=== PATIENT | male | born 1940 | race Caucasian/White ===

== ENCOUNTER 2022-03-15 14:33 | Outpatient (REF) | payer OTHER, SELFPAY ==
[2022-03-15 16:16] LABS: Vitamin B12 1549 pg/mL (200-900)
== END 2022-03-15 14:34 | disposition home or self-care (01) ==
LOC: HO.LAB 14:33
PROVIDERS: Visit Provider Psychiatry & Neurology Neurology
DX: G30.9 Alzheimer's disease, unspecified (principal)
CPT/HCPCS: 36415; 82607

== ENCOUNTER 2022-11-02 14:30 | Outpatient (AMB) | payer OTHER, SELFPAY ==
--- NOTE | 2022-11-02 14:32 | A.OFFVIS_ITS ---
Intake Vital Signs 11/02/22 14:37 Height 5 ft 10 in Weight 205 lb 4 oz BMI 29.4 BP 124/78 Blood Pressure Location Rt brachial Position Sitting Pulse 51 Pulse Source Pulse Oximeter Pulse Oximetry (%) 93 Oxygen Delivery Method Room Air Intake Visit Reasons: ENP Alzheimer's Dementia - Confirmed Intake Note: Patient presents for evaluation for alzheimer's Allergies No Known Allergies Allergy (Verified 11/02/22 14:38) Medication List - Last Reconciled 11/02/22 by Alley Fernando MD amlodipine 5 mg PO DAILY atorvastatin 20 mg PO DAILY meclizine 25 mg PO TID PRN omeprazole 20 mg PO DAILY scopolamine base 1 patch topical Q3D sertraline 25 mg PO DAILY sildenafil 100 mg PO DIRECTED HPI HPI Comments History of Present Illness Details 82y/o male comes for further management of dementia. About 2 years ago he noticed short term memory issues and difficulty with word finding and expressing.His thinks it started after a gall bladder surgery .He is unable to describe his short term memory issues. ACcording to his , he has had difficulty with directions while driving. He can be disoriented to places. He has trouble with peoples names.He denies executive functions His manages the finances.He has nocturia, no snoring, abnormal leg movements in sleep, makes noises sometimes. [facility] Medical History (Updated 11/02/22 @ 15:23 by Alley Fernando MD) Actinic keratoses Cerebrovascular disease Cervicalgia Cognitive disorder Diastolic dysfunction Discoid lupus Esophageal dysmotility Hyperlipidemia Lactose intolerance Liver hemangioma Migraine Parasomnia Progressive non-fluent aphasia Pulmonary embolism Pulmonary HTN Snoring Surgical History H/O thumb surgery H/O: vasectomy Hx of cholecystectomy Hx of eye surgery Family History Mother Cancer Macular degeneration Brother No problems noted. Sister Stroke Social History Alcohol intake: current Patient Tobacco Use Status: Never used Tobacco Review of Systems Const Reports lethargy ENT Reports dysphagia and Reports hearing loss GI Reports dysphagia Neuro Reports Abnormal speech present and Reports memory loss Psych Reports anxiety, Reports depression and Reports memory loss Physical Exam Vital Signs: Last Vital Signs Pulse 51 07/26/23 14:37 BP 124/78 11/02/22 14:37 Pulse Ox 93 11/02/22 14:37 Oxygen Delivery Method Room Air 11/02/22 14:37 BMI result Body Mass Index 29.4 Const General: cooperative, healthy appearing, comfortable and no acute distress Nutritional Appearance: average body habitus Orientation/consciousness: patient oriented x3 Eyes Pupils: Equal, round and reactive pupils present Neuro Other: speech- non fluent General: patient oriented x3, tone normal, moves all extremities and no focal motor deficits Cranial nerves: Yes Facial sensation intact/muscles of mastication intact, Yes Equal, round and reactive pupils present, Yes Bilaterally intact EOM present, Yes Nystagmus not present, Yes Normal facial strength present and Yes Midline tongue present Speech: Abnormal speech present Orientation What is the (year) (season) (date) (day) (month)?: year, season, date and month Where are we (state) (county) (town or city) (hospital) (floor)?: state, county, town or city, hospital/clinic and floor Registration Name of 3 unrelated objects clearly and slowly, then ask patient to repeat all 3 of them. (1st repeat determines score. Make sure they can repeat all three): object 1, object 2 and object 3 Attention & Calculation (CHOOSE ONE) Spell WORLD backwards (DLROW): 5 letters Recall Ask patient to repeat the 3 items from question #3.: object 1 Language Show patient a wristwatch & ask what it is. Repeat for pencil.: watch and pencil Ask the patient to repeat the phrase 'No ifs, ands, or buts' after you.: correct Ask the patient to 'take a piece of paper with their right hand' 'fold paper in half' 'place paper on floor': take paper in right hand, fold paper in half and place paper on floor Print the sentence 'CLOSE YOUR EYES' on a piece. If patient actually closes eyes then score.: followed written direction Give patient a blank piece of paper & ask to write a sentence. Score if it contains a noun & verb.: sentence contains subject and verb Ask patient to copy figure of intersecting pentagons exactly. Score if all 10 angles & 2 intersects are included.: all 10 angles present & 2 are intersected Score Score: 27 Assessment & Plan Assessment & Plan (1) Progressive non-fluent aphasia: Comment: neurodegenerative vs vascular Code(s): G31.01 - Pick's disease; F02.80 - Dementia in other diseases classified elsewhere, unspecified severity, without behavioral disturbance, psychotic disturbance, mood disturbance, and anxiety (2) Cognitive disorder: Code(s): F09 - Unspecified mental disorder due to known physiological condition (3) Snoring: Code(s): R06.83 - Snoring (4) Parasomnia: Comment: REM behavior disorder Code(s): G47.50 - Parasomnia, unspecified Plan MRI report from PCP for review I will schedule him for sleep study tor /o sleep apnea, evaluate his parasomnia Neuropsych evaluation Speech and cognitive therapy. 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
[2022-11-02 14:37] VITALS: BP 124/78; PULSE 51; O2SAT 93; BMI 29.4
== END 2022-11-02 15:23 | disposition home or self-care (01) ==
PROVIDERS: PCP Internal Medicine; Visit Provider Psychiatry & Neurology Neurology
DX: G31.01 Pick's disease (principal); F02.80 Dementia in other diseases classified elsewhere, unspecified severity, without behavioral disturbance, psychotic disturbance, mood disturbance, and anxiety; R41.89 Other symptoms and signs involving cognitive functions and awareness; R06.83 Snoring; G47.50 Parasomnia, unspecified
CPT/HCPCS: 99204

== ENCOUNTER → 2022-11-02 14:30 | Outpatient (BNVA) | payer OTHER, SELFPAY | PROVIDERS: PCP Internal Medicine; Visit Provider Psychiatry & Neurology Neurology | DX: G31.01 Pick's disease (principal); F02.80 Dementia in other diseases classified elsewhere, unspecified severity, without behavioral disturbance, psychotic disturbance, mood disturbance, and anxiety; F09 Unspecified mental disorder due to known physiological condition; R06.83 Snoring; G47.50 Parasomnia, unspecified | CPT/HCPCS: 99202 ==

== ENCOUNTER → 2022-11-28 19:30 | Outpatient (REF) | payer OTHER, SELFPAY | LOC: HO.SL 19:30 | PROVIDERS: PCP Internal Medicine; Visit Provider Psychiatry & Neurology Neurology | DX: G47.33 Obstructive sleep apnea (adult) (pediatric) (principal); G47.50 Parasomnia, unspecified; R06.83 Snoring | CPT/HCPCS: 95810 ==

== ENCOUNTER → 2022-11-28 21:46 | Outpatient (BNV) | payer OTHER, SELFPAY | PROVIDERS: PCP Internal Medicine; Visit Provider Psychiatry & Neurology Neurology | DX: G47.33 Obstructive sleep apnea (adult) (pediatric) (principal) | CPT/HCPCS: 95810 ==

== ENCOUNTER 2022-12-02 10:19 | Outpatient (REF) | payer OTHER, SELFPAY ==
--- NOTE | ~2022-12-02 | FL_ITS ---
PROCEDURE: XR BARIUM SWALLOW CLINICAL INFORMATION: Dysphagia. COMPARISON: None available. TECHNIQUE: Modified barium swallow was performed lateral position under fluoroscopy in presence of speech therapist. FINDINGS: On oral administration of thin, thick nectar and puree consistency, food coated with barium there is normal propagation of bolus from the oral cavity through the pharynx into esophagus without obstruction. No laryngeal penetration or aspiration seen. No retention of barium in the valleculae or piriform sinuses. FLUOROSCOPY TIME: 1.4 minutes DOSE AREA PRODUCT: 2.147 uGy-m2 (microgray-meter squared) FL/FL barium swallow modified IMPRESSION: Unremarkable modified barium swallow in presence of speech therapist. Correlate with speech therapy report.
--- NOTE | 2022-12-02 11:59 | MHC.SL.IMP ---
Date of Plan of Treatment: 12/02/22 Onset of Symptoms/Illness: 11/03/22 Date Treatment Started: 12/02/22 Admitting Diagnosis: Dysphagia, unspecified Pick's disease Dementia w/o behavioral disturbance Primary Speech & Language Diagnosis: R13.10 Dysphagia Secondary Speech & Language Diagnosis: Pre-evaluation Dietary Consistencies: Pre-evaluation Liquid Consistency: Thin Pre-evaluation Medication Administration: Oral Motor Exam Facial Symmetry: Normal for Patient Symmetrical Mouth Occlusion: Normal Oral-Facial Teeth Characteristics: Intact/Normal Dentures Oral Expression Ability: Mild Impairment Is patient able to manage secretions?: Yes Is patient able to produce volitional cough?: Yes Food and Liquid Trials: Oral Impairment: Lip Closure: 0=No labial escape Oral Impairment: Tongue Control During Bolus Hold: 0=Cohesive bolus between tongue to palatal seal Oral Impairment: Bolus Preparation/Mastication: 1=Slow prolonged chewing/mashing with complete re-collection Oral Impairment: Bolus Transport/Lingual Motion: 1= Delayed initiation of tongue motion Oral Impairment: Oral Residue: 2=Residue collection on oral structures Oral Impairment:Initiation of Pharyngeal Swallow: 2=Bolus head at posterior laryngeal surface of epiglottis Pharyngeal Impairment: Soft Palate Elevation: 0=No bolus between soft palate (SP)/pharyngeal wall (PW) Pharyngeal Impairment: Laryngeal Elevation: 0=Complete superior movement of thyroid cartilage (see description) Pharyngeal Impairment: Anterior Hyoid Excursion: 0=Complete anterior movement Pharyngeal Impairment: Epiglottic Movement: 1=Partial inversion Pharyngeal Impairment: Laryngeal Vestibular Closure:: 1=Incomplete: narrow column air/contrast in laryngeal vestibule Pharyngeal Impairment: Pharyngeal Stripping Wave: 0=Present: complete Pharyngeal Impairment: Pharyngeal Contraction: Did not test Pharyngeal Impairment: Pharyngoesophageal Segment Openin=Partial distention/partial duration: partial obstruction of flow Pharyngeal Impairment: Tongue Base (TB) Retraction: 1=Trace column of contrast/air between TB and posterior PW Pharyngeal Impairment: Pharyngeal Residue: 1=Trace residue within or on pharyngeal structures Pharyngeal Impairment: Esophageal Clearance Upright Position: Did not test Impressions and Recommendations [id number] Results: Lip closure for intraoral bolus containment resulted in no labial escape. Tongue control during bolus hold maintained a cohesive bolus held between tongue to palate seal. Bolus preparation and mastication resulted in slow, prolonged chewing/mashing but with complete re-collection. Bolus transport/lingual motion demonstrated delayed initiation of tongue motion. Oral residue was a collection on oral structures. Initiation of the pharyngeal swallow occurred as the bolus head was at the posterior laryngeal surface of the epiglottis. Soft palate elevation resulted in no bolus between the soft palate and the pharyngeal wall. Laryngeal elevation demonstrated complete superior movement of the thyroid cartilage with complete approximation of the arytenoids to the epiglottic petiole. Anterior hyoid excursion demonstrated complete anterior movement. Epiglottic movement resulted in partial inversion. Laryngeal vestibular closure was incomplete, with a narrow column of air/contrast noted within the laryngeal vestibule at the height of the swallow. Pharyngeal stripping wave was present and complete. Pharyngeal contraction could not be determined due to logistical reasons not related to physiologic impairment. Pharyngoesophageal segment opening demonstrated partial distension/partial duration, with partial obstruction of bolus flow. Tongue base retraction allowed a trace column of contrast or air between the retracted tongue base and the posterior pharyngeal wall. Pharyngeal residue was a trace within or on pharyngeal structures. Esophageal clearance in the upright position could not be assessed due to logistical reasons not related to physiologic impairment. Summary: Mr. Varner demonstrates adequate airway protection. Mild age-related changes are noted including oral and pharyngeal clearance, however he is able to compensate for these with supplemental swallow attempts. Mild retention of contrast is noted at the upper esophageal sphincter. The attending Radiologist performed a scan of the distal esophagus revealing adequate clearance into the stomach with no evidence of stricture. A full esophagram would be needed to correlate these findings, as deemed appropriate. Liquid Intake Recommendation: Thin Liquid Intake Strategies: Unrestricted Dietary Recommendations: Regular Medication Administration: Whole with Liquid Please contact the pharmacy regarding appropriate crushable or liquid drug formulations that are available whenever modified delivery is recommended. Compensatory Strategies Recommended: Sitting Upright (90 deg) Double Swallow Small Bites and Sips Alternate Liquids/Solids Supervision during eating and or drinking: Intermittent Supervision Recommended Treatments: Compens. Strategy Educat. Recommendation for Speech Therapy: NA:Typical Evaluation Text Comment: Frequency/Duration: Date Range for Service Requested: Timeline to reassess: PRN Scrap Separator Clinician/Clinical Fellow: No Supervisory Statement: N/A Speech Language Pathologist: Kumar Calvillo M.A., CCC-[facility]
== END 2022-12-02 10:20 | disposition home or self-care (01) ==
LOC: HO.XRAY 10:19
PROVIDERS: PCP Internal Medicine; Visit Provider Psychiatry & Neurology Neurology
DX: R13.10 Dysphagia, unspecified (principal); G31.01 Pick's disease; F02.80 Dementia in other diseases classified elsewhere, unspecified severity, without behavioral disturbance, psychotic disturbance, mood disturbance, and anxiety
CPT/HCPCS: 74230

== ENCOUNTER → 2022-12-02 10:19 | Outpatient (BNV) | payer OTHER, SELFPAY | PROVIDERS: PCP Internal Medicine; Visit Provider Radiology Diagnostic Radiology | DX: R13.10 Dysphagia, unspecified (principal) | CPT/HCPCS: 74230 ==

== ENCOUNTER 2023-02-24 09:18 | Outpatient (AMB) | payer OTHER, SELFPAY ==
--- NOTE | 2023-02-24 09:28 | MHC.OFFVIS ---
Intake Vital Signs 02/24/23 09:31 Height 5 ft 10 in Weight 204 lb 5 oz BMI 29.3 BP 132/76 Blood Pressure Location Rt brachial Position Sitting Respiration 16 Pulse 68 Pulse Source Pulse Oximeter Pulse Oximetry (%) 98 Oxygen Delivery Method Room Air Intake Visit Reasons: 2m f/u Alzheimer's Dementia- LVM Intake Note: Pt presents tot he office for follow up for Alzheimer's disease. He has brought MRI and CT discs for review today. He states he's been the same since his last visit. He's been using his CPAP but doesn't feel it works for him because he moves around too much. Branch Lending Manager Required: No Allergies No Known Allergies Allergy (Verified 02/24/23 09:39) Medication List - Last Reconciled 02/24/23 by Alley Fernando MD amlodipine 5 mg PO DAILY atorvastatin 20 mg PO DAILY meclizine 25 mg PO TID PRN omeprazole 20 mg PO DAILY scopolamine base 1 patch topical Q3D sertraline 25 mg PO DAILY sildenafil 100 mg PO DIRECTED HPI HPI Comments History of Present Illness Details 82y/o male comes for further management of dementia and CANDACE . His sleep study was c/w severe sleep apnea AHI 22/hr and the oxygen abilio 89%.He started CPAP but has difficulty He did not do speech therapy or memory testing.. About 2 years ago he noticed short term memory issues and difficulty with word finding and expressing.His thinks it started after a gall bladder surgery .He is unable to describe his short term memory issues. ACcording to his , he has had difficulty with directions while driving. He can be disoriented to places. He has trouble with peoples names.He denies executive functions His manages the finances.He has nocturia, no snoring, abnormal leg movements in sleep, makes noises sometimes. [facility] Medical History (Updated 02/24/23 @ 10:06 by Alley Fernando MD) CANDACE on CPAP Cognitive disorder Progressive non-fluent aphasia Snoring Parasomnia Cervicalgia Migraine Liver hemangioma Lactose intolerance Cerebrovascular disease Actinic keratoses Discoid lupus Diastolic dysfunction Esophageal dysmotility Hyperlipidemia Pulmonary embolism Pulmonary HTN Surgical History H/O: vasectomy H/O thumb surgery Hx of eye surgery Hx of cholecystectomy Family History Mother Cancer Macular degeneration Brother No problems noted. Sister Stroke Social History Alcohol intake: current Patient Tobacco Use Status: Never used Tobacco Review of Systems Neuro Reports Abnormal speech present Physical Exam Vital Signs: Last Vital Signs Pulse 68 02/24/23 09:31 Resp 16 02/24/23 09:31 BP 132/76 02/24/23 09:31 Pulse Ox 98 02/24/23 09:31 Oxygen Delivery Method Room Air 02/24/23 09:31 BMI result Body Mass Index 29.3 Const General: cooperative, healthy appearing, comfortable and no acute distress Nutritional Appearance: average body habitus Orientation/consciousness: patient oriented x3 Eyes Pupils: Equal, round and reactive pupils present Neuro Other: speech- non fluent General: patient oriented x3, tone normal, moves all extremities and no focal motor deficits Cranial nerves: Yes Facial sensation intact/muscles of mastication intact, Yes Equal, round and reactive pupils present, Yes Bilaterally intact EOM present, Yes Nystagmus not present, Yes Normal facial strength present and Yes Midline tongue present Speech: Abnormal speech present Orientation What is the (year) (season) (date) (day) (month)?: year, season, date, day and month Where are we (state) (county) (town or city) (hospital) (floor)?: state, town or city, hospital/clinic and floor Registration Name of 3 unrelated objects clearly and slowly, then ask patient to repeat all 3 of them. (1st repeat determines score. Make sure they can repeat all three): object 1, object 2 and object 3 Attention & Calculation (CHOOSE ONE) Spell WORLD backwards (DLROW): 5 letters Recall Ask patient to repeat the 3 items from question #3.: object 1 Language Show patient a wristwatch & ask what it is. Repeat for pencil.: watch and pencil Ask the patient to repeat the phrase 'No ifs, ands, or buts' after you.: correct Ask the patient to 'take a piece of paper with their right hand' 'fold paper in half' 'place paper on floor': take paper in right hand and fold paper in half Print the sentence 'CLOSE YOUR EYES' on a piece. If patient actually closes eyes then score.: followed written direction Give patient a blank piece of paper & ask to write a sentence. Score if it contains a noun & verb.: sentence contains subject and verb Ask patient to copy figure of intersecting pentagons exactly. Score if all 10 angles & 2 intersects are included.: all 10 angles present & 2 are intersected Score Score: 26 Assessment & Plan Assessment & Plan (1) Progressive non-fluent aphasia: Comment: neurodegenerative vs vascular Code(s): G31.01 - Pick's disease; F02.80 - Dementia in other diseases classified elsewhere, unspecified severity, without behavioral disturbance, psychotic disturbance, mood disturbance, and anxiety (2) Parasomnia: Comment: REM behavior disorder Code(s): G47.50 - Parasomnia, unspecified (3) CANDACE on CPAP: Code(s): G47.33 - Obstructive sleep apnea (adult) (pediatric) Plan MRI report from PCP for review Continue CPAP. Compleance stressed. Will trial him on memantine XR 7 mg qd Speech and cognitive therapy. Orders: Referrals Speech and Hearing Referral F02.80 - Dementia in other diseases classified elsewhere, unspecified severity, without behavioral disturbance, psychotic disturbance, mood disturbance, and anxiety, G31.01 - Pick's disease Medications: New memantine 7 mg PO DAILY 30 ea 0RF Coding Level of Care Code Est Pt Level 4 (50849) Diagnoses Progressive non-fluent aphasia G31.01; F02.80 Parasomnia G47.50 CANDACE on CPAP G47.33
[2023-02-24 09:31] VITALS: BP 132/76; PULSE 68; RESP 16; O2SAT 98; BMI 29.3
== END 2023-02-24 10:09 | disposition home or self-care (01) ==
PROVIDERS: PCP Internal Medicine; Visit Provider Psychiatry & Neurology Neurology
DX: G31.01 Pick's disease (principal); F02.80 Dementia in other diseases classified elsewhere, unspecified severity, without behavioral disturbance, psychotic disturbance, mood disturbance, and anxiety; G47.50 Parasomnia, unspecified; G47.33 Obstructive sleep apnea (adult) (pediatric)
CPT/HCPCS: 99214

== ENCOUNTER → 2023-02-24 09:18 | Outpatient (BNVA) | payer OTHER, SELFPAY | PROVIDERS: PCP Internal Medicine; Visit Provider Psychiatry & Neurology Neurology | DX: G47.50 Parasomnia, unspecified (principal); R06.83 Snoring; G31.01 Pick's disease; F02.80 Dementia in other diseases classified elsewhere, unspecified severity, without behavioral disturbance, psychotic disturbance, mood disturbance, and anxiety; F09 Unspecified mental disorder due to known physiological condition ==

== ENCOUNTER 2023-04-19 12:56 | Outpatient (RCR) | payer OTHER, SELFPAY ==
--- NOTE | 2023-04-25 15:10 | MHC.SP.ADU ---
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 Mr. Travis Varner is an 82 year old man referred for a speech-language evaluation by Alley Fernando MD of [facility] [place] in [place], [place]. Mrs. Kirstie Varner, Travis?s spouse, accompanied him to the evaluation and reports that she noticed her having a harder time ?remembering things.? Mr. Varner reports that he was under anesthesia for a 6-hour surgery in September 2020 and upon recovering from this procedure, noticed changes to his cognition. He reported difficulties in the following areas: expressing thoughts, understanding what others are saying, memory, attention, reading, writing, stuttering, following directions, and finding words. and Mrs. Varner recall ?being told Mr. Varner may have dementia,? but did not elaborate with further details. He did mention familial history of cognitive impairment or dementia in his father. 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 Mr. Varner has hearing aids, but did not wear them for this evaluation. Mr. Varner completed some high school and GED. He has two adult children in their 50s and lives in a private residence with his . He enjoys playing golf and noticed he has begun to have trouble finding the golf ball. Mr. Varner hopes to work on his memory skills and improve his speech. Medical History: Medical History (Updated 11/02/22 @ 15:23 by Alley Fernando MD) Actinic keratoses Cerebrovascular disease Cervicalgia Cognitive disorder Diastolic dysfunction Discoid lupus Esophageal dysmotility Hyperlipidemia Lactose intolerance Liver hemangioma Migraine Parasomnia Progressive non-fluent aphasia Pulmonary embolism Pulmonary HTN Snoring Surgical History H/O thumb surgery H/O: vasectomy Hx of cholecystectomy Hx of eye surgery Tests of Speech & Lang Adults: BNT Clinical Impression: Impaired Observations: Mr. Varner was administered the Standard Form of the [place] Naming Test (BNT). He was presented with line drawings, which he was instructed to name in a confrontation naming task. Mr. Varner correctly named 37 out of 60 images. He did produce frequent paraphasias, naming items with words that are similar in meaning or in the way they sound. For example, he labeled the pelican as ?duck? (semantic paraphasia) and hammock as ?harmonica? (phonemic paraphasia). Patient was able to name common nouns, such as ?comb,? but exhibited more difficulty naming less salient items, such as ?compass? or ?scroll.? He was observed to name many items using descriptive phrases (i.e. ?Ice pinchers? for ?tongs?). Mr. Varner benefitted from word retrieval cues and was able to name an additional 16 items in response to semantic (i.e. ?Think of 3? for target word ?tripod?) and phonemic (i.e. ?Cac?.? for target word ?cactus?) cues. Based on our observations, Mr. Varner presents with moderate anomia. He is observed to utilize compensatory strategies and self-cues to eventually retrieve words on his own and/or to continue the communication exchange. Tests of Cognition: RBANS Clinical Impression: Impaired Observations: Additionally, Mr. Varner?s cognitive linguistic skills were evaluated using the RBANS: The Repeatable Battery for the Assessment of Neuropsychological Status (RBANS-Updated Form A). The RBANS assesses aspects of cognitive memory, language, and attention skills. The RBANS is considered a screening battery for cognitive function used with adolescents and adults, ages 12 to 89 years. Composite domains assessed in this evaluation are: Immediate Memory, Visuospatial/Constructional, Language, Attention, and Delayed Memory. Assessed domains and their scores are summarized below: IMMEDIATE MEMORY: These subtests assess an individual?s ability to remember a small amount of information immediately after it is presented. Mr. Varner was presented with a list of 10 spoken words and was instructed to repeat back as many words as he could remember from the list (List Learning). He initially recalled 2 items from the list of 10. He was able to recall additional items from the list after several repetitions, indicating that verbal repetition seems to facilitate his recall to some degree. After listening to a spoken paragraph, Mr. Varner was instructed to re-tell the story with as much detail as he could remember (Story memory). Again, he was able to recall more details after listening to the story another time. List Learning Total Score: 8 Scaled Score: 1 Story Memory Total Score: 6 Scaled Score: 3 Immediate Memory Index score: 49 Interpretation: Extremely Low VISUOSPATIAL/CONSTRUCTIONAL: These subtests assess an individual?s visuospatial skills and perception of spatial relationships. Mr. Varner was able to draw a copy of a figure presented to him (Figure Copy). Mr. Varner also identified lines that matched based on orientation and placement in most trials (Line Orientation). Mr. Varner?s visuo-spatial skills are a relative strength. Figure Copy Total Score: 19 Scaled Score: 12 Line Orientation Total Score: 15 Percentile Group: 26-50 Interpretation: Average Visuospatial/Constructional Index score: 102 Interpretation: Average LANGUAGE: Mr. Varner scored within the average range on subtests measuring his word retrieval skills. He correctly named 10 out of 10 line drawings during a confrontational naming task (Picture Naming). These line drawings depicted more frequent and salient items. He did exhibit more difficulty with activities that probed his semantic fluency. Picture Naming Total Score: 10 Percentile Group: >75 Semantic Fluency Total Score: 9 Scaled Score: 4 Language Index score: 86 Interpretation: Average ATTENTION: These subtests assess an individual?s capacity to remember and manipulate both visually and orally presented information in short-term memory storage. Mr. Varner was first instructed to repeat back series of numbers which were verbally presented to him (Digit Span) and he was able to recall up to 6 digits at a time. Mr. Varner was also instructed to code markings with numbers (Coding). He coded 16 markers within our time constraint of 90 seconds, making minimal errors. Digit Span Total Score: 7 Scaled Score: 6 Coding Total Score: 16 Scaled Score: 3 Attention Index score: 64 Interpretation: Low DELAYED MEMORY: These subtests assess an individual?s retrieval of information from long-term memory. Mr. Varner exhibited difficulty recalling information that was presented to him at the beginning of the testing period. He stated, ?I just don?t remember any of it.? He was unable to recall any items on the list presented to him at the beginning of our session (List Recall) and was able to recall just one cade detail from the story that had been previously told (Story Recall). Mr. Varner expressed, ?This is what I can?t do.? Mr. Varner was then asked to recognize items by indicating whether or not a given word was on that list (List Recognition). He indicated 14/20 words which were on the list, stating, ?I?m guessing now.? He demonstrated again relative strengths in his visual memory, as he re-naye an approximation of the figure he previously copied (Figure Recall). List Recall Total Score: 0 Percentile Group: 3-9 List Recognition Total Score: 14 Percentile Group: <2 Story Recall Total Score: 1 Scaled Score: 3 Figure Recall Total Score: 7 Scaled Score: 7 Delayed Memory Index score: 60 Interpretation: Low Sum of Index Scores: 361 Total Scale Score: 65 Percentile: 1% Rajwinder Pena (1998). Repeatable Battery for the Assessment of Neuropsychological Status [Manual]. [place]: [place]. Impressions and Recommendations Summary: Impact on Daily Function/Activity Limitations: Daily Activities: Mild Interpersonal Interactions: Mild Education: Employment: Community: Mild Recommendation for Speech Therapy: Outpatient Speech Therapy Frequency/Duration: 1x weekly x 12 weeks Date Range for Service Requested: Time to Reassess: 6 months Mr. Varner presents with a moderate cognitive linguistic impairment, with anomia and difficulties in short-term memory and attention. Based on his performance on RBANS and BNT, the following areas of weakness were identified as treatment targets: story memory at the paragraph level, immediate auditory recall (digits, addresses), delayed memory, and word finding. Mr. Varner would benefit from outpatient treatment once weekly x 12 sessions to work on the following goals: Retirement Goals: 1.) Mr. Varner will utilize a variety of word-finding strategies at the conversational level with minimal assistance in >80% opportunities presented to him. 2.) Mr. Varner will utilize compensatory strategies to assist (immediate and delayed) short-term memory in 80% of opportunities independently. Short Term Goals: Goal # : 1.1.Mr. Varner will identify a target word when provided with 3-4 related words or phrases in a word deduction task with 80% accuracy and minimal verbal assistance. 1.2.Mr. Varner will utilize Semantic Feature cues (i.e. category, use, function, physical components, association, location) to describe items to a listener successfully in 80% of opportunities with visual support (chart). 1.3. Mr. Varner will employ circumlocution as a strategy to facilitate word retrieval in conversation in 4 out of 5 opportunities with occasional verbal cues (leading questions, reminders to utilize semantic feature analysis technique). Goal Status: New Goal Goal# : 2.1.Mr. Varner will demonstrate increased ability to independently copy relevant details (i.e. character names, time lines, main ideas) with 80% accuracy from a highlighted reading source (i.e. news articles, journal, story) after listening to an oral presentation when provided with minimal verbal reminders. 2.2. Mr. Varner will answer auditory comprehension questions about highlighted paragraphs/narratives with 80% accuracy when provided with minimal cues across three sessions. Goal Status: New Goal Goal # : 2.3. Mr. Varner will use internal memory aids to recall steps (3-4 steps) of a simple recipe with 80% accuracy and minimal verbal cues. 2.4. Mr. Varner will recall at least 4/5 of their daily medications using learned memory strategies in 3 consecutive sessions. 2.5. Mr. Varner will recite 3 details from a voicemail message (i.e. appointment type, date, time) with >80% accuracy and moderate assistance. 2.6. Mr. Varner will recognize pictures and words after studying a list of words and illustrations for 20 seconds. He will use internal memory aids to recognize 80% of targeted pictures/words when provided with minimal cues across three sessions. Recommended Referrals to be Discussed with Primary Care Provider: Neurology Patient Education: Completed: Yes Patient/Caregiver Education: Described Results of Evaluation Patient expressed understanding of evaluation Family/Caregivers expressed understanding of results Comments/Barriers to Learning: Telephoto Installer Clinican/Clinical Fellow: No Supervisory Statement: N/A Speech Language Pathologist: Geovanna Fabian M.A., CCC-SALESPERSON [employer]
== END 2023-05-04 13:55 | disposition still patient (30) ==
LOC: HO.SH 12:56
PROVIDERS: Visit Provider Psychiatry & Neurology Neurology
DX: G31.01 Pick's disease (principal); F02.80 Dementia in other diseases classified elsewhere, unspecified severity, without behavioral disturbance, psychotic disturbance, mood disturbance, and anxiety
CPT/HCPCS: 96125

== ENCOUNTER 2023-05-26 09:00 | Outpatient (AMB) | payer OTHER, SELFPAY ==
--- NOTE | 2023-05-26 09:05 | A.OFFVIS_ITS ---
Intake Vital Signs 05/26/23 09:12 Height 5 ft 10 in Weight 207 lb BMI 29.7 BP 122/70 Blood Pressure Location Lt brachial Position Sitting Pulse 79 Pulse Source Pulse Oximeter Pulse Oximetry (%) 94 Oxygen Delivery Method Room Air Intake Visit Reasons: 3 mnts f/u per -PAUL Intake Note: Patient presents for 3 month f/u. needs paperwork looked at Allergies No Known Allergies Allergy (Verified 05/26/23 09:11) Medication List - Last Reconciled 05/26/23 by Harshal Faustin CNP amlodipine 5 mg PO DAILY atorvastatin 20 mg PO DAILY meclizine 25 mg PO TID PRN memantine 7 mg PO DAILY omeprazole 20 mg PO DAILY scopolamine base 1 patch topical Q3D sertraline 25 mg PO DAILY sildenafil 100 mg PO DIRECTED HPI HPI Comments History of Present Illness Details 83 y/o male patient presents for comes f or follow up of dementia and CANDACE. His sleep study was c/w severe sleep apnea AHI 22/hr and the oxygen abilio 89%. He started CPAP but has difficulty using it and difficulty sleeping, he returned CPAP on 03/22. Pt was evaluated by speech therapy for cognitive impairment and difficulty word finding and expressing. He was recommended to have outpatient speech therapy for 12 weeks. Pt started memantine XR 7 mg daily, denies side effects. He has trouble with peoples names. He denies executive functions, independent for ADLs. His manages the finances. [facility] Medical History (Updated 02/24/23 @ 10:06 by Alley Fernando MD) CANDACE on CPAP Cognitive disorder Progressive non-fluent aphasia Snoring Parasomnia Cervicalgia Migraine Liver hemangioma Lactose intolerance Cerebrovascular disease Actinic keratoses Discoid lupus Diastolic dysfunction Esophageal dysmotility Hyperlipidemia Pulmonary embolism Pulmonary HTN Surgical History H/O: vasectomy H/O thumb surgery Hx of eye surgery Hx of cholecystectomy Family History Mother Cancer Macular degeneration Brother No problems noted. Sister Stroke Social History Alcohol intake: current Patient Tobacco Use Status: Never used Tobacco Physical Exam Vital Signs: Last Vital Signs Pulse 79 05/26/23 09:12 BP 122/70 02/16/24 09:12 Pulse Ox 94 05/26/23 09:12 Oxygen Delivery Method Room Air 05/26/23 09:12 BMI result Body Mass Index 29.7 Assessment & Plan Assessment & Plan (1) Progressive non-fluent aphasia: Comment: neurodegenerative vs vascular Code(s): G31.01 - Pick's disease; F02.80 - Dementia in other diseases classified elsewhere, unspecified severity, without behavioral disturbance, psychotic disturbance, mood disturbance, and anxiety (2) Parasomnia: Comment: REM behavior disorder Code(s): G47.50 - Parasomnia, unspecified (3) CANDACE on CPAP: Code(s): G47.33 - Obstructive sleep apnea (adult) (pediatric) Plan Advised patient to continue to do speech therapy for 12 weeks. Continue to take memantine XR 7 mg, and will consider to increase after finishing the speech and cognitive therapy. Pt does not want to use CPAP. Coding Level of Care Code Est Pt Level 3 (59732) Diagnoses Progressive non-fluent aphasia G31.01; F02.80 Parasomnia G47.50 CANDACE on CPAP G47.33
[2023-05-26 09:12] VITALS: BP 122/70; PULSE 79; O2SAT 94; BMI 29.7
== END 2023-05-26 09:54 | disposition home or self-care (01) ==
PROVIDERS: PCP Internal Medicine; Visit Provider Nurse Practitioner Family
DX: G31.01 Pick's disease (principal); F02.80 Dementia in other diseases classified elsewhere, unspecified severity, without behavioral disturbance, psychotic disturbance, mood disturbance, and anxiety; G47.50 Parasomnia, unspecified; G47.33 Obstructive sleep apnea (adult) (pediatric)
CPT/HCPCS: 99213

== ENCOUNTER → 2023-05-26 09:00 | Outpatient (BNVA) | payer OTHER, SELFPAY | PROVIDERS: PCP Internal Medicine; Visit Provider Nurse Practitioner Family ==

== ENCOUNTER 2023-08-22 08:52 | Outpatient (AMB) | payer OTHER, SELFPAY ==
[2023-08-22 08:56] VITALS: BP 126/78; PULSE 67; RESP 16; O2SAT 98; BMI 29.7
--- NOTE | 2023-08-22 08:56 | A.OFFVIS_ITS ---
Vital Signs 08/22/23 08:56 Height 5 ft 10 in Weight 207 lb BMI 29.7 BP 126/78 Blood Pressure Location Rt brachial Position Sitting Respiration 16 Pulse 67 Pulse Source Pulse Oximeter Pulse Oximetry (%) 98 Oxygen Delivery Method Room Air Intake Visit Reasons: 6 mnts f/u Alzheimer's Dementia-CONF Intake Note: Pt presents to the office for follow up of Alzheimer's. 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 His detailed speech and cognitive evaluation showed impaired speech, language and cognition- poor performance on immediate memory His sleep study was c/w severe sleep apnea AHI 22/hr and the oxygen abilio 89%. He started CPAP but has difficulty using it and difficulty sleeping, he returned CPAP on 03/22. Pt was evaluated by speech therapy for cognitive impairment and difficulty word finding and expressing/ Pt started memantine 5 mg qd He has trouble with peoples names. He denies executive functions, independent for ADLs. His manages the finances. [facility] Medical History CANDACE on CPAP Cognitive disorder Progressive non-fluent aphasia Snoring Parasomnia Cervicalgia Migraine Liver hemangioma Lactose intolerance Cerebrovascular disease Actinic keratoses Discoid lupus Diastolic dysfunction Esophageal dysmotility Hyperlipidemia Pulmonary embolism Pulmonary HTN Surgical History H/O: vasectomy H/O thumb surgery Hx of eye surgery Hx of cholecystectomy Family History Mother Cancer Macular degeneration Brother No problems noted. Sister Stroke Social History Alcohol intake: current Patient Tobacco Use Status: Never used Tobacco Review of Systems Neuro Reports Abnormal speech present Physical Exam Vital Signs: Last Vital Signs Pulse 67 08/22/23 08:56 Resp 16 08/22/23 08:56 BP 126/78 08/22/23 08:56 Pulse Ox 98 08/22/23 08:56 Oxygen Delivery Method Room Air 08/22/23 08:56 BMI result Body Mass Index 29.7 Const General: cooperative, healthy appearing, comfortable and no acute distress Nutritional Appearance: average body habitus Orientation/consciousness: patient oriented x3 Eyes Pupils: Equal, round and reactive pupils present Neuro Other: speech- non fluent General: patient oriented x3, tone normal, moves all extremities and no focal motor deficits Cranial nerves: Yes Facial sensation intact/muscles of mastication intact, Yes Equal, round and reactive pupils present, Yes Bilaterally intact EOM present, Yes Nystagmus not present, Yes Normal facial strength present and Yes Midline tongue present Speech: Abnormal speech present Assessment & Plan Assessment & Plan (1) Progressive non-fluent aphasia: Comment: neurodegenerative vs vascular Code(s): G31.01 - Pick's disease; F02.80 - Dementia in other diseases classified elsewhere, unspecified severity, without behavioral disturbance, psychotic disturbance, mood disturbance, and anxiety Category: Medical (2) Parasomnia: Comment: REM behavior disorder Code(s): G47.50 - Parasomnia, unspecified Category: Medical (3) CANDACE on CPAP: Code(s): G47.33 - Obstructive sleep apnea (adult) (pediatric) Category: Medical Plan Continue speech therapy for 12 weeks. Increase memantine 10mg qd Trial patient on donepezil 10mg qd Pt does not want to use CPAP. Medications: New memantine 10 mg PO BID 60 tabs 6RF donepezil 1/2 tab qd for 2 weeks then 1 tab qd 10 mg PO DAILY 30 tabs 6RF Discontinued memantine Discontinued Reason: Patient no longer taking 7 mg PO DAILY 30 ea 0RF Coding Level of Care Code Est Pt Level 4 (16955) Diagnoses Progressive non-fluent aphasia G31.01; F02.80 Parasomnia G47.50 CANDACE on CPAP G47.33
== END 2023-08-22 09:28 | disposition home or self-care (01) ==
PROVIDERS: PCP Internal Medicine; Visit Provider Psychiatry & Neurology Neurology
DX: G31.01 Pick's disease (principal); F02.80 Dementia in other diseases classified elsewhere, unspecified severity, without behavioral disturbance, psychotic disturbance, mood disturbance, and anxiety; G47.50 Parasomnia, unspecified; G47.33 Obstructive sleep apnea (adult) (pediatric)
CPT/HCPCS: 99214

== ENCOUNTER → 2023-08-22 08:52 | Outpatient (BNVA) | payer OTHER, SELFPAY | PROVIDERS: PCP Internal Medicine; Visit Provider Psychiatry & Neurology Neurology ==

== ENCOUNTER 2023-09-15 10:00 | Outpatient (RCR) | payer OTHER, SELFPAY ==
--- NOTE | 2023-12-29 19:53 | MHC.SL.SOA ---
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 Mr. Travis Varner is an 82 year old man referred for a speech-language evaluation by Alley Fernando MD of [facility] in [place], [place]. Mrs. Kirstie Varner, Travis?s spouse, accompanied him to the evaluation and reports that she noticed her having a harder time ?remembering things.? Mr. Varner reports that he was under anesthesia for a 6-hour surgery in September 2020 and upon recovering from this procedure, noticed changes to his cognition. He reported difficulties in the following areas: expressing thoughts, understanding what others are saying, memory, attention, reading, writing, stuttering, following directions, and finding words. and Mrs. Varner recall ?being told Mr. Varner may have dementia,? but did not elaborate with further details. He did mention familial history of cognitive impairment or dementia in his father. 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 Mr. Varner has hearing aids, but did not wear them for this evaluation. Mr. Varner completed some high school and GED. He has two adult children in their 50s and lives in a private residence with his . He enjoys playing golf and noticed he has begun to have trouble finding the golf ball. Mr. Varner hopes to work on his memory skills and improve his speech. Bud has an upcoming appointment w/ Dr. Alley Mcmahon on 08/22/2023. 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 Bud began speech therapy at [facility] in May 2023 where he completed 12 speech therapy sessions. In September 2023 it was recommended that Bud take a break from speech therapy to focus needs related to his hearing loss such as ensuring he has appropriate hearing aids. In November 2023, Bud was contacted and did not wish to pursue further speech therapy at that time. Plan: At this time, Bud is to be discharged from speech therapy as the patient's reports that they do not have interest in resuming speech therapy in the immediate future. They were informed they will need to reach out to their PCP for a referral should they choose to resume speech therapy in the future. Bud was re-administered the RBANS in September 2023. Bud's most recent standardized testing demonstrates areas for improvement in immediate memory, delayed memory, language, and attention. Therefore, it is recommended that Bud resume speech therapy to support cognitive-linguistic therapy in these areas at a later date. It is still recommended that Bud ensure any needs related to hearing loss are met prior to resuming speech therapy such as adjusting hearing aids as needed. Goal # : 1.1.Mr. Varner will identify a target word when provided with 3-4 related words or phrases in a word deduction task with 80% accuracy and minimal verbal assistance. 1.2.Mr. Varner will utilize Semantic Feature cues (i.e. category, use, function, physical components, association, location) to describe items to a listener successfully in 80% of opportunities with visual support (chart). 1.3. Mr. Varner will employ circumlocution as a strategy to facilitate word retrieval in conversation in 4 out of 5 opportunities with occasional verbal cues (leading questions, reminders to utilize semantic feature analysis technique). Status of Goal: Goal Continued Goal # : 2.1.Mr. Varner will demonstrate increased ability to independently copy relevant details (i.e. character names, time lines, main ideas) with 80% accuracy from a highlighted reading source (i.e. news articles, journal, story) after listening to an oral presentation when provided with minimal verbal reminders. 2.2. Mr. Varner will answer auditory comprehension questions about highlighted paragraphs/narratives with 80% accuracy when provided with minimal cues across three sessions. Status of Goal: Goal Continued Goal # : 2.4. Mr. Varner will independently navigate to daily medications note on cell phone in 3 consecutive sessions. 2.5. Mr. Varner will recite 3 details from information presented auditorily with >80% accuracy and moderate assistance. 2.6. Mr. Varner will recognize pictures and words after studying a list of words and illustrations for 20 seconds. He will use internal memory aids to recognize 80% of targeted pictures/words when provided with minimal cues across three sessions. Status of Goal: Revised Goal Goal # : Status of Goal: Seen by: Graduate/Clinical Fellow: No Supervisory Statement: f_Reg Query Last Value , MHC.AU.SIGNAT Speech Language Pathologist: Sylvia Martin M.A., CCC-OPERATIONS EXAMINER
== END 2024-01-01 10:05 | disposition home or self-care (01) ==
LOC: HO.SH 10:00
PROVIDERS: PCP Internal Medicine; Visit Provider Psychiatry & Neurology Neurology
DX: R41.841 Cognitive communication deficit (principal); F02.80 Dementia in other diseases classified elsewhere, unspecified severity, without behavioral disturbance, psychotic disturbance, mood disturbance, and anxiety; R47.01 Aphasia
CPT/HCPCS: 92507

== ENCOUNTER 2023-10-02 09:58 | Outpatient (REF) | payer OTHER, SELFPAY | END 2023-10-02 09:59 | disposition home or self-care (01) | LOC: HO.SH 09:58 | PROVIDERS: PCP Internal Medicine; Visit Provider Internal Medicine | DX: Z01.118 Encounter for examination of ears and hearing with other abnormal findings (principal); H90.3 Sensorineural hearing loss, bilateral | CPT/HCPCS: 92557 ==

== ENCOUNTER 2024-02-28 10:52 | Outpatient (AMB) | payer OTHER, SELFPAY ==
--- NOTE | 2024-02-28 10:54 | A.OFFVIS_ITS ---
Vital Signs 02/28/24 10:55 Height 5 ft 10 in Weight 207 lb BMI 29.7 BP 120/82 Blood Pressure Location Rt brachial Position Sitting Intake Visit Reasons: Obstructive sleep apnea (adult) (pediatric), Dementia Intake Note: Patient presents for 6 month follow up dementia and sleep apnea. Allergies No Known Allergies Allergy (Verified 02/28/24 11:07) Medication List - Last Reconciled 02/28/24 by Alley Fernando MD amlodipine 5 mg PO DAILY atorvastatin 20 mg PO DAILY hydroxychloroquine 100 mg PO BID meclizine 25 mg PO TID PRN memantine 10 mg PO BID omeprazole 20 mg PO DAILY scopolamine base 1 patch topical Q3D sertraline 50 mg (2 x 25 mg) PO DAILY HPI Comments Details: 83 y/o male patient presents for comes for follow up of dementia and CANDACE. His detailed speech and cognitive evaluation showed impaired speech, language and cognition- poor performance on immediate memory He is on memantine . He could not tolerate Donepezil- became very aggressive. His sleep study was c/w severe sleep apnea AHI 22/hr and the oxygen abilio 89%. He started CPAP but has difficulty using it and difficulty sleeping, he returned CPAP on 03/22. Pt was evaluated by speech therapy for cognitive impairment and difficulty word finding and expressing He has trouble with peoples names. He denies executive functions, independent for ADLs. His manages the finances. 6 mths ago he had [place] Palsy on his Right and still has residual weakness with difficulty chewing. He is also under investigation for lupus. 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 Sister Stroke Social History Alcohol intake: current Patient Tobacco Use Status: Never used Tobacco Review of Systems Neuro Reports Abnormal speech present Physical Exam Vital Signs: Last Vital Signs BP 120/82 02/28/24 10:55 BMI result Body Mass Index 29.7 Const General: cooperative, healthy appearing, comfortable and no acute distress Nutritional Appearance: average body habitus Orientation/consciousness: patient oriented x3 Eyes Pupils: Equal, round and reactive pupils present Neuro Other: speech- non fluent General: patient oriented x3, tone normal, moves all extremities and no focal motor deficits Cranial nerves: Yes Equal, round and reactive pupils present, Yes Bilaterally intact EOM present, Yes Nystagmus not present, Yes Normal facial strength present and Yes Midline tongue present Speech: Abnormal speech present Orientation What is the (year) (season) (date) (day) (month)?: year, season, date and month Where are we (state) (county) (town or city) (hospital) (floor)?: state, county, town or city, hospital/clinic and floor Registration Name of 3 unrelated objects clearly and slowly, then ask patient to repeat all 3 of them. (1st repeat determines score. Make sure they can repeat all three): object 1, object 2 and object 3 Attention & Calculation (CHOOSE ONE) Spell WORLD backwards (DLROW): 5 letters Language Show patient a wristwatch & ask what it is. Repeat for pencil.: watch and pencil Ask the patient to repeat the phrase 'No ifs, ands, or buts' after you.: correct Ask the patient to 'take a piece of paper with their right hand' 'fold paper in half' 'place paper on floor': take paper in right hand, fold paper in half and place paper on floor Print the sentence 'CLOSE YOUR EYES' on a piece. If patient actually closes eyes then score.: followed written direction Give patient a blank piece of paper & ask to write a sentence. Score if it contains a noun & verb.: sentence contains subject and verb Ask patient to copy figure of intersecting pentagons exactly. Score if all 10 angles & 2 intersects are included.: all 10 angles present & 2 are intersected Score Score: 26 Assessment & Plan Assessment & Plan (1) Dementia: Code(s): F03.90 - Unspecified dementia, unspecified severity, without behavioral disturbance, psychotic disturbance, mood disturbance, and anxiety Qualifiers: Dementia behavioral or psychological symptom: without behavioral, psychotic, or mood disturbance or anxiety Dementia severity: mild Dementia type: unspecified type Qualified Code(s): F03.A0 - Unspecified dementia, mild, without behavioral disturbance, psychotic disturbance, mood disturbance, and anxiety (2) Peterson's palsy: Code(s): G51.0 - Peterson's palsy Category: Medical (3) Obstructive sleep apnea: Code(s): G47.33 - Obstructive sleep apnea (adult) (pediatric) Plan: not on CPAP Plan Continue memantine 10mg bid PT for bells palsy discussed about Leqembi and [place] - unclear if he will be a candidate due to his comorbid conditions. Orders: Orders PT Evaluation and Treatment Today G51.0 - Peterson's palsy Coding Level of Care Code Est Pt Level 4 (64075) Complex EM visit Add On G2211 Diagnoses Mild dementia without behavioral disturbance, psychotic disturbance, mood disturbance, or anxiety, unspecified dementia type F03.A0 Dementia behavioral or psychological symptom: without behavioral, psychotic, or mood disturbance or anxiety Dementia severity: mild Dementia type: unspecified type Peterson's palsy G51.0 Obstructive sleep apnea G47.33
[2024-02-28 10:55] VITALS: BP 120/82; BMI 29.7
== END 2024-02-28 11:48 | disposition home or self-care (01) ==
PROVIDERS: PCP Internal Medicine; Visit Provider Psychiatry & Neurology Neurology
DX: F03.A0 Unspecified dementia, mild, without behavioral disturbance, psychotic disturbance, mood disturbance, and anxiety (principal); G51.0 Bell's palsy; G47.33 Obstructive sleep apnea (adult) (pediatric)
CPT/HCPCS: 99214; G2211

== ENCOUNTER 2024-10-15 10:28 | Outpatient (AMB) | payer OTHER, SELFPAY ==
[2024-10-15 10:34] VITALS: BP 120/82; PULSE 78; O2SAT 98; BMI 27.7
--- NOTE | 2024-10-15 10:34 | A.OFFVIS_ITS ---
Vital Signs 10/15/24 10:34 Height 5 ft 10 in Weight 193 lb BMI 27.7 BP 120/82 Blood Pressure Location Rt brachial Position Sitting Pulse 78 Pulse Source Pulse Oximeter Pulse Oximetry (%) 98 Oxygen Delivery Method Room Air Intake Visit Reasons: 6 mnts f/u Alzheimer's Dementia Intake Note: Patient presents for follow up referred to PT [facility] [place] and spoke with Kayce she will fax notes Allergies No Known Allergies Allergy (Verified 10/15/24 10:35) HPI Comments Details: 84 y/o male patient presents for comes for follow up of dementia and CANDACE. His detailed speech and cognitive evaluation showed impaired speech, language and cognition- poor performance on immediate memory His cognition is worse. He is on memantine . He could not tolerate Donepezil- became very aggressive. His sleep study was c/w severe sleep apnea AHI 22/hr and the oxygen abilio 89%. He started CPAP but has difficulty using it and difficulty sleeping, he returned CPAP on 03/22. Pt was evaluated by speech therapy for cognitive impairment and difficulty word finding and expressing He has trouble with peoples names. He denies executive functions, independent for ADLs. His manages the finances. 1 year ago he had [place] Palsy on his Right and still has residual weakness with difficulty chewing. 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 Sister Stroke Social History Alcohol intake: current Patient Tobacco Use Status: Never used Tobacco Review of Systems Neuro Reports Abnormal speech present Physical Exam Vital Signs: Last Vital Signs Pulse 78 10/15/24 10:34 BP 120/82 10/15/24 10:34 Pulse Ox 98 10/15/24 10:34 Oxygen Delivery Method Room Air 10/15/24 10:34 BMI result Body Mass Index 27.7 Const General: cooperative, healthy appearing, comfortable and no acute distress Nutritional Appearance: average body habitus Orientation/consciousness: patient oriented x3 Eyes Pupils: Equal, round and reactive pupils present Neuro Other: speech- non fluent General: patient oriented x3, tone normal, moves all extremities and no focal motor deficits Cranial nerves: Yes Equal, round and reactive pupils present, Yes Bilaterally intact EOM present, Yes Nystagmus not present, Yes Normal facial strength present and Yes Midline tongue present Speech: Abnormal speech present Orientation What is the (year) (season) (date) (day) (month)?: year, season, day and month Where are we (state) (county) (town or city) (hospital) (floor)?: state, town or city, hospital/clinic and floor Registration Name of 3 unrelated objects clearly and slowly, then ask patient to repeat all 3 of them. (1st repeat determines score. Make sure they can repeat all three): object 1 and object 2 Attention & Calculation (CHOOSE ONE) Spell WORLD backwards (DLROW): 1 letter Recall Ask patient to repeat the 3 items from question #3.: object 1 Language Show patient a wristwatch & ask what it is. Repeat for pencil.: watch and pencil Ask the patient to repeat the phrase 'No ifs, ands, or buts' after you.: correct Ask the patient to 'take a piece of paper with their right hand' 'fold paper in half' 'place paper on floor': take paper in right hand Print the sentence 'CLOSE YOUR EYES' on a piece. If patient actually closes eyes then score.: followed written direction Ask patient to copy figure of intersecting pentagons exactly. 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 Coding Level of Care Code Est Pt Level 4 (23196) Diagnoses Dementia F03.90 Dementia type: unspecified type Peterson's palsy G51.0 Obstructive sleep apnea G47.33
--- OUTSIDE RECORDS SUMMARY | 2024-10-15 11:21 | XMS_ITS | Encounter Summary ---
[facility] Address [address] [place] [address] Care Team Providers Care Data Warehousing Engineer Name Role Phone Nikunj Kendrick MD Primary Care Provider [phone] Encounter Details Date Type Department Care Team ([facility] st Contact Info) Description 09/09/2024 Telephone Internal Medicine - [place] 175 [facility] [address] [place] [id number] Nikunj Kendrick MD [address] [facility] [address] [place], [place] [id number] Social History Tobacco Use Types Packs/Day Years Used Date Smoking Tobacco: Former Cigarettes Q uit: 08/09/1963 Smokeless Tobacco: Never Alcohol Use Standard Drinks/Week Comments Not Currently 0 (1 standard drink = 0.6 oz pur e alcohol) Food Access & Nutrition Answer Date Rec orded Do you have access to a vari ety of food including fruits and vegetables? Yes 08/23/2024 Access to Healthcare Answer Date Record ed Within the last 3 months, juwan anderson many times did you visit the emergency department for your medical care? 0 08/23/2024 Health Literacy Answer Date Recorded How often do you need to hav e someone help you when you read instructions, pamphlets, or other written material from your doctor or pharmacy? Always 08/23/2024 Caregiver: How often do you need to have someone help you when you read instructions, pamphlets, or other written material from your doctor or pharmacy? Not on file 08/23/2024 Financial Risk Answer Date Recorded How hard is it for you to pa y for the very basics like food, housing, medical care, and air conditioning / heating? Very hard 08/23/2024 Transportation Answer Date Recorded Has the lack of transportati on kept you from meetings, work, or from getting things needed for daily living? No Has the lack of transportati on kept you from medical appointments or from getting medications? No 08/23/2024 Social Isolation Answer Date Recorded How often do you feel lonely or isolated from those around you? Sometimes 08/23/2024 Food Risk Answer Date Recorded Within the past 12 months we worried whether our food would run out before we got money to buy more. Never true 08/23/2024 Within the past 12 months th e food we bought just didn't last and we didn't have money to get more. Never true 08/23/2024 Dependent Care Answer Date Recorded Do you need help finding or paying for care for your loved ones. For example, child care sitter or elderly care for an older adult? No 08/23/2024 Education Answer Date Recorded Do you think completing more education or training, like finishing a GED, going to college, or learning a trade, would be helpful for you? No 08/23/2024 Employment and Income Answer Date Recor ded During the last four weeks, have you been actively looking for work? No 08/23/2024 Living Situation Answer Date Recorded What is your living situation? 0 08/23/2024 Interpersonal Safety Answer Date Record ed Physical Abuse 09/05/2024 Verbal Abuse 09/05/2024 Sex and Gender Information Value Date Recorded Sex Assigned at Not on file Legal Sex Male 5:33 AM EST Gender Identity Not on file Sexual Orientation Not on file documented as of this encounter Plan of Treatment Upcoming Encounters Date Type Department Care Team (Late st Contact Info) Description 12/25/2024 10:45 AM EDT Office Visit [facility] [address] [place] [phone] Wali Bland MD [address] [facility] [address] [place] [address] 03/07/2025 10:30 AM EST Office Visit Internal Medicine - [place] [address] [phone] Nikunj Kendrick MD [address] [address] documented as of this encounter Visit Diagnoses Not on filedocumented in this encounter Additional Health Concerns Assessment Noted Time PHQ-9 Depression Total Score: 2 08/24/19 9:58 AM EDT documented as of this encounter Care Teams Data Warehousing Engineer Relationship Specialty Start Date End Date Nikunj Kendrick MD [address] [address] PCP - General Internal Medicine 04/23/24 documented as of this encounter
--- OUTSIDE RECORDS SUMMARY | 2024-10-15 11:21 | XMS_ITS | Patient Health Record ---
Author Organization [facility] Address [address] [place] [address] Care Team Providers Care Audio Production Engineer Name Role Phone Lexis Mcneil MD Primary Care Provider Lalo De Jr Unavailable [phone] Reason For Referral No Information Medications Medication SIG (Take, Route, Frequency, Duration) Notes Start Date End Date Status Multivitamins Active ASA Active Bee Pollen Active Glucosamine Active Colyte with Flavor Packs 240 GM As directed Orally Over the specified time. for 1 day(s) 05/21/2015 Active Viagra Active Meclizine HCl Active Problems Problem Type SNOMED Code ICD Code Onset Dates Problem Status W/U Status Risk Notes Problem 009797816 Colon cancer screening (Z12.11) Active confirmed Problem 30075716 Other dysphagia (R13.19) Active confirmed Problem 661234421 Gastroesophageal reflux disease without esophagitis (K21.9) Active confirmed Plan Of Treatment Future Test Test Name Order Date UPPER GI ENDOSCOPY 05/21/2015 COLONOSCOPY 05/21/2015 Insurance Providers Payer Name Payer Address Payer Phone Subscriber Number Group Number Insured Name Patient Relationship to Insured Coverage Start Date Coverage End Date FAMILY [employer] PLAN (REFERRA L NEEDED) [address] [place] [phone] [id number] PATI NOVA Self - patient is the insured Medical (General) History Medical History History ICD Code colonoscopy 01-19-2001 colon polyps Denies LA,DM,CVA,Lung disease,renal dise ase Surgical History Surgery Date(Month/Year) HEEL,THUMB,FOOT HERNIA TEETH
--- OUTSIDE RECORDS SUMMARY | 2024-10-15 11:21 | XMS_ITS | Patient Health Record ---
Author Organization [facility] Address [address] [place] [id number] Care Team Providers Care Transmitter Engineer In Charge Name Role Phone EVA MIXON Primary Care Provider Reason For Referral No Information Medications Medication SIG (Take, Route, Frequency, Duration) Notes Start Date End Date Status meclizine 1 PO q6h prn dizziness meclizine 25 mg tablet; COMMENTS : ; 05/03/2017 Active Social History Social History Additional Details Category Social Info Options Details MigratedSocialHX MigratedSocialHX Smoking Status :retiredSmoking Status :Former smoker([id number])Smoking Status :DENIES ALCOHOL USE Problems Problem Type SNOMED Code ICD Code Onset Dates Problem Status W/U Status Risk Notes Problem Benign paroxysmal vertigo, unspecified ear (H81.10) 05/03/19 18 Active confirmed gary-Benign paroxysmal vertigo, unspecified ear Problem Dizziness and giddiness (062570713) Dizziness and giddiness (R42) 05/03/19 18 Active confirmed gary-Dizziness and giddiness Plan Of Treatment No Information
--- OUTSIDE RECORDS SUMMARY | 2024-10-15 11:21 | XMS_ITS | Clinical Summary ---
Author Organization [facility] Address [address] [place], [place] [id number] Care Team Providers Care Mailroom Courier Name Role Phone Nikunj Kendrick MD Primary Care Provider Unavailab le Allergies No known active allergies Medications Medication Sig Dispensed Refills Start Date End Date Status Eliquis 5 MG TABS tablet 0 10/13/2021 Active amLODIPine (NORVASC) tablet 5 mg 0 10/12/2021 Active atorvastatin (LIPITOR) tablet 20 mg 0 09/27/2021 Active omeprazole (PriLOSEC) 20 MG capsule 0 11/30/2021 Active Active Problems Problem Noted Date Diagnosed Date Pulmonary embolus 12/21/2021 Overview: 08/2020 at [facility], [facility] cholesystitis, gall bladder surgery Discoid lupus erythematosus 12/21/2021 Word finding difficulty 12/21/2021 Family History Medical History Relation Name Comments Coronary artery disease Father Cancer Mother breast Relation Name Status Comments Father Mother Social History Tobacco Use Types Packs/Day Years Used Date Smoking Tobacco: Former Cigarettes Smokeless Tobacco: Never Comments:only smoked from ag e [age] Alcohol Use Standard Drinks/Week Comments Yes 0 (1 standard drink = 0.6 oz pur e alcohol) social Sex and Gender Information Value Date Recorded Sex Assigned at Not on file Gender Identity Not on file Sexual Orientation Not on file Job Start Date Occupation Industry Not on file Not on file Not on file Last Filed Vital Signs Vital Sign Reading Time Taken Comments Blood Pressure 145/77 12/21/2021 1:05 PM EDT Pulse 50 12/21/2021 1:05 PM EDT Temperature 36.5 C (97.7 F) 12/21/2021 1:05 PM EDT Respiratory Rate - - Oxygen Saturation 97% 12/21/2021 1:05 PM EDT Inhaled Oxygen Concentration - - Weight 94.2 kg (207 lb 9.6 oz) 12/21/2021 1:05 P M EDT Height - - Body Mass Index - - Plan of Treatment Health Maintenance Due Date Last Done Comments Depression Screening 1952 Preventative Health Evaluation 1958 Fall Risk Assessment 2005 RSV Adult > 60+ Yrs or (1 - 1-dose 75+ series) 2015 COVID-19 Vaccine ( season) 2023 01/19/2021, 06/08/2020, 05/17/2020 Influenza Vaccine (#1) 2024 , 01/30/2018, 02/03/2016, Additional history exists DTap / Tdap / Td (3 - Td or Tdap) 05/23/2028 05/23/2018, 05/17/2012 Pneumococcal Vaccine Completed 03/02/2015, 02/11/20 10 Shingrix-Zoster Vaccine Completed 05/26/19 19, 12/16/2017, 12/15/2017 Hepatitis B Vaccines Aged Out No long er eligible based on patient's age to complete this topic RSV Ped < 20 months Aged Out No longe r eligible based on patient's age to complete this topic Care Teams Mailroom Courier Relationship Specialty Start Date End Date Nikunj Kendrick MD PCP - General Internal Medicine 10/13/21
== END 2024-10-15 11:10 | disposition home or self-care (01) ==
PROVIDERS: PCP Internal Medicine; Visit Provider Psychiatry & Neurology Neurology
DX: F03.90 Unspecified dementia, unspecified severity, without behavioral disturbance, psychotic disturbance, mood disturbance, and anxiety (principal); G51.0 Bell's palsy; G47.33 Obstructive sleep apnea (adult) (pediatric)
CPT/HCPCS: 99214